=== PATIENT | male | born 1945 | race Caucasian/White ===

== ENCOUNTER 2019-12-31 08:14 | Emergency (ER) | payer MEDICARE, OTHER ==
[2019-12-31] MEDS ORDERED: Sodium Chloride 0.9% 1000 ML 1,000 ML IV ONE (08:15)
[2019-12-31] MEDS ORDERED: EPINEPHRINE ABBOJECT 1 MG IV ONE (08:18)
[2019-12-31] MEDS ORDERED: SODIUM BICARBONATE 50 MEQ/50 ML ABBOJECT IV ONE (08:18)
--- NOTE | 2019-12-31 08:50 | ERPHSYRPT ---
- History of Present Illness Time Seen by Provider: 12/31/19 08:14 Source: family, EMS Exam Limitations: clinical condition Physician History: Patient is a 68-year-old male who presents to our ED via EMS in full cardiac arrest with compressions/ACLS in progress. Per patient's he was found unresponsive at 7 AM. Patient is a diabetic. performed an Accu-Chek which revealed a glucose rate of 40. EMS was notified. Upon EMS arrival patient was unresponsive. His Accu-Chek revealed a glucose of 39. D50 administered. Patient remained unresponsive and had a pulse. Upon transferring from the house into the ambulance patient's pulse was lost. UA was observed on the monitor. ACLS was initiated. Patient was intubated on the scene with 8 oh ET tube. Per EMS patient did not have a gag reflex at the time of intubation. IV access left antecubital was placed. She received 3 rounds of epinephrine prior to arrival. A fourth dose of epi was administered upon arrival to our ED. EDMD checked for breath sounds however no breath sounds were observed. Respiratory check placement of ET tube and was found to be dislodged. ET tube was pulled and respiratory bag patient with a facemask. Patient's IV access was lost during ACLS in our ED. Right tibial IO placed. Standard ACLS protocol was continued. Patient was reassessed. Patient was in asystole. Patient's rhythm upon arrival to our ED and throughout his course in our ED was asystole. No shockable rhythm observed. No corneal reflexes appreciated. Family arrived. ACLS was still in progress. Family elected to see patient while ACLS in progress. After explaining the high likelihood of mortality and or low likelihood of meaningful neurologic outcome daughter decided to stop CPR efforts. Time of was 8:30 AM. Family also reports a recent diagnosis of liver cancer and kidney transplant in 2016. Timing/Duration: other (Symptoms first observed at 7 AM. Time of 8:30 AM.) Severity: severe Modifying Factors: Improves With: nothing Associated Symptoms: other (Unresponsive) - Review of Systems All Other Systems: Unable due to condition - Nursing Vital Signs Nursing Vital Signs: Initial Vital Signs Pulse Rate 0 L 12/31/19 08:14 Respiratory Rate 0 L 12/31/19 08:14 - Physical Exam General Appearance: other (Patient arrived unresponsive. Patient was ventilated CPR in progress. Pale appearing) Eye Exam: other (Pupils fixed dilated. No corneal reflex.) Ears, Nose, Throat Exam: other (Bloody frothy oral secretions observed.) Neck Exam: normal inspection, supple Respiratory Exam: other (Mildred arrest) Cardiovascular Exam: other (Cardiovascular collapseasystole) Gastrointestinal/Abdomen Exam: soft Extremity Exam: other Neurologic Exam: other (Responsive) Skin Exam: pale SpO2 Interpretation: O2 applied, airway management int. O2 Delivery: Ambu-Bag - Course Nursing assessment & vital signs reviewed: Yes Ordered Tests: Active Orders 24 hr Category Date Time Status CO2 Monitoring STAT Care 12/31/19 09:32 Active Standby STAT RT 12/31/19 09:31 Active - Progress Progress: unchanged Progress Note: 12/31/19 08:56 74-year-old male initially arrived as Erich Valdovinos. Patient found by family unresponsive and hypoglycemic. ACLS in progress upon arrival. Per EMS patient intubated. Patient was ventilated. Standard ACLS procedures continued in our ED. Asystole upon arrival. Family arrived. After discussion regarding patient's progress and family reviewing of ACLS efforts patient was pronounced at 8:30 AM. 12/31/19 10:21 patient not a candidate for organ donation due to history of cancer. Counseled pt/family regarding: diagnosis - Departure Departure Disposition: Clinical Impression: Hypoglycemia, Cardiovascular collapse, Cardiac arrest Condition: Critical Care Time: No Referrals: BALA CORNEJO DCM [Primary Care Provider] -
[2019-12-31 09:41] VITALS: PULSE 0
== END 2019-12-31 10:23 | disposition expired ==
LOC: ED 08:14
DX: E16.2 Hypoglycemia, unspecified (principal); I46.9 Cardiac arrest, cause unspecified
CPT/HCPCS: 94799; 99283; 99291; J0171